=== PATIENT | male | born 1990 | race Caucasian/White ===

== ENCOUNTER 2018-07-24 10:23 | Emergency (ER) | payer OTHER ==
[~2018-07-24] VITALS: Ht 167.6 cm; Wt 62.6 kg
[~2018-07-24 10:23] MED LIST: IMODIUM A-D2 MG PO; PEPCID40 MG PO; PHENERGAN25 MG PO
[2018-07-24] MEDS ORDERED: PREMARIN0.45 MG PO (10:47)
== END 2018-07-24 15:31 | disposition home or self-care (01) ==
LOC: ER 10:23
DX: G43.809 Other migraine, not intractable, without status migrainosus (principal)

== ENCOUNTER 2021-05-11 13:32 | Inpatient (IN) | payer OTHER ==
[~2021-05-11] VITALS: Ht 170.2 cm; Wt 61.2 kg
[~2021-05-11 13:32] MED LIST changes: +PREMARIN0.45 MG PO
[2021-05-14] MEDS ORDERED: ALDACTONE100 MG PO (12:34)
[2021-05-14] MEDS ORDERED: ESTRADIOL2 MG PO (12:35)
[2021-05-14] MEDS ORDERED: PREMARIN1.25 MG PO (12:36)
[2021-05-16] MEDS ORDERED: INTESTINEX680 M2 PO (14:09)
[2021-05-16] MEDS ORDERED: CIPRO500 MG PO (14:09)
[2021-05-16] MEDS ORDERED: ANUCORT-HC25 MG RECTAL (14:09)
[2021-05-16] MEDS ORDERED: PYRIDOXINE HCL100 MG PO (14:09)
[2021-05-16] MEDS ORDERED: PEPCID AC20 MG PO (14:09)
[2021-05-16] MEDS ORDERED: FLAGYL500MG PO (14:09)
[2021-05-16] MEDS ORDERED: HYDROCORTISO453.6 G1 RECTAL (14:09)
[2021-05-16] MEDS ORDERED: Neurin-Sl Tablet Sl SL (14:09)
== END 2021-05-16 16:34 | disposition home or self-care (01) | DRG 812 ==
LOC: ER 13:32 → SEC-K 21:01 → MEDJ 21:01
PROVIDERS: ADMIT Internal Medicine; ATTEND Internal Medicine
PROC: 30233N1 Transfusion of Nonautologous Red Blood Cells into Peripheral Vein, Percutaneous Approach (ICD-10-PCS; principal; 2021-05-12)
PROC: BW2110Z Computerized Tomography (CT Scan) of Abdomen and Pelvis using Low Osmolar Contrast, Unenhanced and Enhanced (ICD-10-PCS; 2021-05-12)
PROC: 0DBP8ZX Excision of Rectum, Via Natural or Artificial Opening Endoscopic, Diagnostic (ICD-10-PCS; 2021-05-15)
DX: D50.0 Iron deficiency anemia secondary to blood loss (chronic) (principal); K62.5 Hemorrhage of anus and rectum; K62.89 Other specified diseases of anus and rectum; F64.0 Transsexualism; Z79.899 Other long term (current) drug therapy; Z20.822 Contact with and (suspected) exposure to COVID-19

== ENCOUNTER 2021-06-05 16:22 | Emergency (ER) | payer OTHER ==
[~2021-06-05] VITALS: Ht 170.2 cm; Wt 61.2 kg
[~2021-06-05 16:22] MED LIST changes: +ALDACTONE100 MG PO; +ANUCORT-HC25 MG RECTAL; +CIPRO500 MG PO; +ESTRADIOL2 MG PO; +FLAGYL500MG PO; +HYDROCORTISO453.6 G1 RECTAL; +INTESTINEX680 M2 PO; +Neurin-Sl Tablet Sl SL; +PEPCID AC20 MG PO; +PREMARIN1.25 MG PO; +PYRIDOXINE HCL100 MG PO
[2021-06-05] MEDS ORDERED: PYRIDOXINE HCL50 MG PO (16:54)
[2021-06-05] MEDS ORDERED: ABANEU-SL TABL1 EACH SL (16:55)
[2021-06-05] MEDS ORDERED: BUTALBIT-ACETA1 EACH PO (19:05)
== END 2021-06-05 19:33 | disposition home or self-care (01) ==
LOC: ER 16:22
DX: G43.909 Migraine, unspecified, not intractable, without status migrainosus (principal); Z03.818 Encounter for observation for suspected exposure to other biological agents ruled out

== ENCOUNTER 2021-10-04 12:52 | Emergency (ER) | payer OTHER ==
[~2021-10-04] VITALS: Ht 167.6 cm; Wt 61.2 kg
[~2021-10-04 12:52] MED LIST changes: +ABANEU-SL TABL1 EACH SL; +BUTALBIT-ACETA1 EACH PO; +PYRIDOXINE HCL50 MG PO
[2021-10-04] MEDS ORDERED: AMOX-CLAV 875-1 EACH PO (15:38)
[2021-10-04] MEDS ORDERED: KETO10TA2 PO (15:38)
== END 2021-10-04 16:55 | disposition home or self-care (01) ==
LOC: ER 12:52
DX: K08.89 Other specified disorders of teeth and supporting structures (principal)

== ENCOUNTER 2023-07-23 08:42 | Emergency (ER) | payer OTHER ==
[~2023-07-23] VITALS: Ht 167.6 cm; Wt 59.0 kg
[~2023-07-23 08:42] MED LIST changes: +AMOX-CLAV 875-1 EACH PO; +KETO10TA2 PO
[2023-07-23 11:12] LABS: HEMATOCRIT 44.2 % (36.0-45.00); HEMOGLOBIN 14.9 g/dL (12.0-15.00); MEAN CELL VOLUME 80.3 fL (80.00-100.00); MEAN CORPUSCULAR HEMOGLOBIN 27.1 pg (27.00-32.0); MEAN CORPUSCULAR HGB CONC 33.7 g/dl (32.0-36.0); PLATELET COUNT 214 K/uL (150-450); RED CELL DISTRIBUTION WIDTH 17.9 % (11.5-14.5)
== END 2023-07-23 14:06 | disposition home or self-care (01) ==
LOC: ER
PROVIDERS: General Practice
DX: G43.809 Other migraine, not intractable, without status migrainosus (principal); Z20.822 Contact with and (suspected) exposure to COVID-19

== ENCOUNTER 2024-08-07 22:37 | Emergency (ER) | payer OTHER ==
[~2024-08-07] VITALS: Ht 170.2 cm; Wt 56.7 kg
[2024-08-08] MEDS ORDERED: KETOROLAC TROMETHAMINE 15 MG VIAL IV STA (01:42)
[2024-08-08] MEDS ORDERED: HALOPERIDOL LACTATE 5 MG/ML AMPUL IM STA (01:45)
[2024-08-08] MEDS ORDERED: DIPHENHYDRAMINE HCL 50 MG/ML VIAL 1ML IM STA (01:46)
[2024-08-08] MEDS ORDERED: DIPHENHYDRAMINE HCL 50 MG/ML VIAL 1ML ONE (01:53)
[2024-08-08] MEDS ORDERED: HALOPERIDOL LACTATE 5 MG/ML AMPUL ONE (01:54)
[2024-08-08] MEDS ORDERED: KETOROLAC TROMETHAMINE 30 MG VIAL ONE (01:54)
[2024-08-08 02:42] LABS: HEMATOCRIT 40.8 % (36.0-45.00); HEMOGLOBIN 13.5 g/dL (12.0-15.00); MEAN CORPUSCULAR HEMOGLOBIN 25.4 pg (27.00-32.0); PLATELET COUNT 363 K/uL (150-450); RED CELL DISTRIBUTION WIDTH 15.7 % (11.5-14.5)
== END 2024-08-08 04:42 | disposition home or self-care (01) ==
LOC: ER 22:39
DX: G43.909 Migraine, unspecified, not intractable, without status migrainosus (principal)